=== PATIENT | male | born 1970 | race Caucasian/White ===

== ENCOUNTER 2024-03-07 17:55 | Emergency (ER) | payer OTHER ==
[2024-03-07 18:11] VITALS: BP 101/65; PULSE 102; RESP 20; TEMP 98
--- NOTE | 2024-03-07 18:38 | ED ---
General Adult HPI - General Chief complaint: Extremity Problem,Nontraumatic Stated complaint: Swelling Time Seen by Provider: 03/07/24 17:59 Source: patient, family, EMS, RN notes reviewed Mode of arrival: EMS Limitations: altered mental status, physical limitation - History of Present Illness Initial comments: Patient is a 54-year-old male present to the emergency department with several concerns. Majority of history is taken from sister. Patient has known brain tumor with 2 craniotomies as well as radiation treatment. Patient was on steroids however this was discontinued. This was discontinued a couple months ago. Patient does have increased swelling and decreased ability to take care of himself. Family has to feed patient. Family has to help patient with his CPAP. Patient is only speaking 1 word answers 1 question. Patient has decreased oral intake. Patient does have some increased generalized weakness. - Related Data Allergies Allergy/AdvReac Type Severity Reaction Status Date / Time No Known Allergies Allergy Verified 03/07/24 18:12 Review of Systems ROS Statement: Those systems with pertinent positive or pertinent negative responses have been documented in the HPI. ROS Other: All systems not noted in ROS Statement are negative. Constitutional: Denies: fever Eyes: Denies: eye pain ENT: Denies: ear pain Respiratory: Denies: cough, dyspnea Cardiovascular: Reports: edema. Denies: chest pain Endocrine: Reports: as per HPI, fatigue Gastrointestinal: Reports: as per HPI Musculoskeletal: Denies: back pain Past Medical History Past Medical History: Atrial Fibrillation, Coronary Artery Disease (CAD), Cancer, Diabetes Mellitus, Hypertension Additional Past Medical History / Comment(s): brain cancer, bedridden, R sided weakness, pressure ulcer to R heel History of Any Multi-Drug Resistant Organisms: None Reported Past Surgical History: Heart Catheterization With Stent Additional Past Surgical History / Comment(s): cranial resection 2021 Past Psychological History: No Psychological Hx Reported Smoking Status: Never smoker Past Alcohol Use History: Occasional Past Drug Use History: None Reported General Exam Limitations: no limitations General appearance: alert Head exam: Present: atraumatic Eye exam: Present: normal appearance, PERRL, EOMI ENT exam: Present: normal oropharynx Neck exam: Present: normal inspection Respiratory exam: Present: normal lung sounds bilaterally Cardiovascular Exam: Present: tachycardia GI/Abdominal exam: Present: soft. Absent: distended, tenderness Extremities exam: Present: other (Patient does have generalized edema, more so on the upper extremities and facies) Neurological exam: Present: alert Expanded Neurological exam: Present: protecting the airway Patient oriented to: Present: person, time. Absent: place (Patient believes he is in [place]) Cranial nerves: EOM's Intact: Normal Motor strength exam: RUE: 2/, LUE: 2/, RLE: 2/, LLE: 2 Eye Response: (4) open spontaneously Motor Response: (6) obeys commands Verbal Response: (4) confused conversation Psychiatric exam: Present: flat affect Skin exam: Present: normal color Course Vital Signs 03/07/24 17:59 Temperature 98.0 F Pulse Rate 102 H Respiratory 20 Rate Blood Pressure 101/65 O2 Sat by Pulse 95 Oximetry - Reevaluation(s) Reevaluation #1: 03/07/24 20:31 Following discussion with radiologist and reviewing films I did notify patient and family. They state patient cannot go to [facility] secondary to insurance. Decision was made to transfer to [facility]. [facility] was contacted however they are closed to transfer secondary to internal disaster. Discussion regarding potential transferred to [facility] or [facility] and patient family still wants to make phone calls on their end prior to making a decision. Therefore transfer is still pending at this time. EKG Findings - EKG Results: EKG: interpreted by ERMD, sinus rhythm, normal axis, normal QRS, normal ST/T EKG shows: tachycardia Medical Decision Making - Medical Decision Making MDM back was pt. sent in by a medical professional or institution (, PA, EXECUTIVE KITCHEN MANAGER, urgent care, hospital, or prison...) When possible be specific @ -No Did you speak to anyone other than the patient for history (EMS, parent, family, police, friend...)? What history was obtained from this source @ -Majority of history is taken from sister as patient is a poor historian Did you review nursing and triage notes (agree or disagree)? Why? @ -I reviewed and agree with nursing and triage notes Were old charts reviewed (outside hosp., previous admission, EMS record, old EKG, old radiological studies, urgent care reports/EKG's, prison records)? Report findings @ -No old charts were reviewed Differential Diagnosis (chest pain, altered mental status, abdominal pain women, abdominal pain men, vaginal bleeding, weakness, fever, dyspnea, syncope, headache, dizziness, GI bleed, back pain, seizure, CVA, palpatations, mental health, musculoskeletal)? @ -Differential Weakness: Hypoglycemia, shock, sepsis, hyponatremia, anemia, infection, IA, ETOH, adverse medicine reaction, overdose, stroke, this is not meant to be an all-inclusive list. EKG interpreted by me (3pts min.). @ -As above X-rays interpreted by me (1pt min.). @ -Chest x-ray shows no acute process CT interpreted by me (1pt min.). @ -CT scan of the brain shows concern for small subarachnoid bleed. Edema right parietal lobe without shift. Cannot rule out underlying lesion. U/S interpreted by me (1pt. min.). @ -None done What testing was considered but not performed or refused? (CT, X-rays, U/S, labs)? Why? @ -None What meds were considered but not given or refused? Why? @ -Considered reversal of Eliquis however patient has been off this for over 24 hours and subarachnoid bleed is questionable Did you discuss the management of the patient with other professionals (professionals i.e. , PA, EXECUTIVE KITCHEN MANAGER, lab, RT, psych nurse, social media designer, automatic developer, teacher, promotion officer, case loader operator)? Give summary @ -Case discussed with Dr. Isaacs at [facility] who will accept transfer. Was smoking cessation discussed for >3mins.? @ -No Was critical care preformed (if so, how long)? @ -No Were there social determinants of health that impacted care today? How? (Homelessness, low income, unemployed, alcoholism, drug addiction, transportation, low edu. Level, literacy, decrease access to med. care, care home, rehab)? @ -No Was there de-escalation of care discussed even if they declined (Discuss DNR or withdrawal of care, Hospice)? DNR status @ -No What co-morbidities impacted this encounter? (DM, HTN, Smoking, COPD, CAD, Cancer, CVA, ARF, Chemo, Hep., AIDS, mental health diagnosis, sleep apnea, morbid obesity)? @ -History of oligodendroglioma Was patient admitted / discharged? Hospital course, mention meds given and route, prescriptions, significant lab abnormalities, going to OR and other pertinent info. @ -Patient presents with several weeks of increasing weakness and inability to take care of himself. Patient has diffuse weakness on exam. Questionable subarachnoid hemorrhage. Questionable recurrent lesion. Patient be transferred for further imaging and evaluation including neurosurgical evaluation. Patient and family are updated Undiagnosed new problem with uncertain prognosis? @ -No Drug Therapy requiring intensive monitoring for toxicity (Heparin, Nitro, Insulin, Cardizem)? @ -No Were any procedures done? @ -No Diagnosis/symptom? @ -Subarachnoid hemorrhage Acute, or Chronic, or Acute on Chronic? @ -Acute Uncomplicated (without systemic symptoms) or Complicated (systemic symptoms)? @ -Default Side effects of treatment? @ -No Exacerbation, Progression, or Severe Exacerbation? @ -No Poses a threat to life or bodily function? How? (Chest pain, USA, IA, pneumonia, PE, COPD, DKA, ARF, appy, cholecystitis, CVA, Diverticulitis, Homicidal, Suicidal, threat to staff... and all critical care pts) @ -Threat to neurological function - Lab Data Result diagrams: 03/07/24 19:43 Lab Results 03/07/24 03/07/24 Range/Units 19:43 19:43 WBC 16.0 H (3.8-10.6) k/uL RBC 3.62 L (4.30-5.90) m/uL Hgb 10.9 L (13.0-17.5) gm/dL Hct 32.2 L (39.0-53.0) % MCV 88.9 (80.0-100.0) fL MCH 30.0 (25.0-35.0) pg MCHC 33.7 (31.0-37.0) g/dL RDW 16.4 H (11.5-15.5) % Plt Count 742 H (150-450) k/uL MPV 6.9 Neutrophils % 80 % Lymphocytes % 13 % Monocytes % 4 % Eosinophils % 2 % Basophils % 0 % Neutrophils # 12.8 H (1.3-7.7) k/uL Lymphocytes # 2.0 (1.0-4.8) k/uL Monocytes # 0.6 (0-1.0) k/uL Eosinophils # 0.3 (0-0.7) k/uL Basophils # 0.1 (0-0.2) k/uL Poikilocytosis Slight Anisocytosis Slight PT 14.2 H (10.0-12.5) sec INR 1.3 H (<1.2) APTT 30.3 H (22.0-30.0) sec Disposition Clinical Impression: Subarachnoid hemorrhage, Oligodendroglioma Disposition: OTHER INSTITUTION NOT DEFINED Is patient prescribed a controlled substance at d/c from ED?: No Referrals: None,Stated [REFERRING] - 1-2 days Time of Disposition: 20:49 - Out of Hospital Transfer - Req. Specs Out of Hospital Transfer - Requested Specifics: Other Emergency Center
--- NOTE | 2024-03-07 20:09 | CT ---
EXAMINATION TYPE: CT brain wo con CT DLP: 1243.2 mGycm, Automated exposure control for dose reduction was used. DATE OF EXAM: 03/07/2024 7:25 PM COMPARISON: None available. CLINICAL INDICATION:Male, 54 years old with history of weakness, weakness, ams TECHNIQUE: Brain: Axial CT images of the brain were obtained with coronal and sagittal reformats created and rev iewed. Contrast used: None. Oral contrast used: None. FINDINGS: Brain: Extra-axial spaces: There is a small focus of linear attenuation suggestive of subarachnoid hemorrhag e in the right parietal lobe adjacent to the posterior aspect of the right lateral ventricle. Ventricular system: Dilatation in proportion to cerebral atrophy. Cerebral parenchyma: Cerebral atrophy. There is vasogenic edema seen in the right parietal lobe surro unding the small linear area of attenuation asymmetrically increased compared to the white matter janusz nges involving the left side. There is additional area of encephalomalacia at the vertex of the brain with atrophic changes abutting the craniotomy site. The garcía-white junction is well differentiated. Scattered hypoattenuating areas are seen within the white matter. Cerebellum: Unremarkable. Mass effect: No evidence of midline shift. Intracranial vasculature: unremarkable Soft tissues: Normal. Calvarium/osseous structures: No acute depressed skull fracture. Craniotomy changes are noted. Paranasal sinuses and mastoid air cells: Clear. Visualized orbits: Orbital contents are intact. IMPRESSION: 1. Small linear area of attenuation is seen in the right parietal lobe adjacent to the posterior righ t lateral ventricle concerning for small subarachnoid hemorrhage. Findings may also relate to previou s treatment versus laminar necrosis. Correlate with any known history or other prior imaging. There i s some vasogenic edema seen in this area. There is limited evaluation for any underlying lesion on th is noncontrasted CT. This finding can be better characterized with an MRI brain with IV contrast. 2. No midline shift at this time. 3. Craniotomy changes with adjacent cerebral atrophy and encephalomalacia. 4. Nonspecific white matter changes, likely secondary to chronic small vessel ischemic disease. Critical findings were given to ordering provider Dr. Reddy by Dr. Goncalves over the phone at 7:57 PM on 03/07/2024 [facility], , 03/07/2024 8:07 PM
--- NOTE | 2024-03-07 20:15 | XR ---
EXAMINATION TYPE: XR chest 1V portable DATE OF EXAM: 03/07/2024 7:26 PM CLINICAL INDICATION:Male, 54 years old with history of weakness; [facility] COMPARISON: None TECHNIQUE: XR chest 1V portable Frontal view of the chest. FINDINGS: Poor penetration on exam limits evaluation. Patient is rotated on exam. Low lung volumes are present. There is some bibasilar atelectasis. Poor visualization of the left costophrenic sulcus. The cardiac silhouette is mildly enlarged. No pneumothorax. IMPRESSION: Bibasilar atelectasis with no other significant acute cardiopulmonary disease/process as visualized. [facility], , 03/07/2024 8:13 PM
[2024-03-07 20:36] LABS: Anisocytosis Slight; Basophils # (A) 0.1 k/uL (0-0.2); Basophils % (A) 0 %; Eosinophils # (A) 0.3 k/uL (0-0.7); Eosinophils % (A) 2 %; HCT 32.2 % (39.0-53.0); HGB 10.9 gm/dL (13.0-17.5); Lymphocytes % (A) 13 %; MCHC 33.7 g/dL (31.0-37.0); MCV 88.9 fL (80.0-100.0); Mean Platelet Volume 6.9; Monocytes # (A) 0.6 k/uL (0-1.0); Monocytes % (A) 4 %; Neutrophils # (A) 12.8 k/uL (1.3-7.7); Neutrophils % (A) 80 %; Platelet Count 742 k/uL (150-450); Poikilocytosis Slight; RBC 3.62 m/uL (4.30-5.90); RDW 16.4 % (11.5-15.5)
[2024-03-07 20:52] LABS: INR 1.3 (<1.2); Partial Thromboplastin Time 30.3 sec (22.0-30.0); Prothrombin Time 14.2 sec (10.0-12.5)
[2024-03-07 20:54] LABS: ALT 11 U/L (4-49); AST 22 U/L (17-59); African American GFR (CKD) >90 (>60 ml/min/1.73 sqM); Albumin 2.5 g/dL (3.5-5.0); Alkaline Phosphatase 60 U/L (38-126); Anion Gap 10 mmol/L; Blood Urea Nitrogen 6 mg/dL (9-20); Calcium 8.6 mg/dL (8.4-10.2); Carbon Dioxide 25 mmol/L (22-30); Chloride 93 mmol/L (98-107); Glucose 144 mg/dL (74-99); Magnesium 1.5 mg/dL (1.6-2.3); Non-African American GFR(CKD) >90 (>60 ml/min/1.73 sqM); Sodium 128 mmol/L (137-145); Total Bilirubin 1.1 mg/dL (0.2-1.3)
[2024-03-07 21:03] LABS: Potassium 4.1 mmol/L (3.5-5.1)
== END 2024-03-07 23:15 | disposition other institution (70) ==
LOC: EC 17:55
DX: I60.9 Nontraumatic subarachnoid hemorrhage, unspecified (principal); C71.9 Malignant neoplasm of brain, unspecified
CPT/HCPCS: 36415; 70450; 71045; 80053; 83735; 84484; 85025; 85610; 85730; 93005; 99285